=== PATIENT | female | born 1970 | race Caucasian/White ===

== ENCOUNTER 2019-11-25 05:00 | Day surgery (SDC) | payer OTHER ==
[2019-11-24 13:36] LABS: HEMATOCRIT 42.2 % (36.0-48.0); MCH 29.4 pg (26.0-34.0); MCHC 33.2 g/dL (31.0-37.0); MCV 88.7 fL (80.0-100.0); MEAN PLATELET VOLUME 10.5 fL (7.4-10.4); RBC 4.76 10x6/uL (4.00-5.40); RDW 12.5 % (11.5-14.5)
[~2019-11-25] VITALS: Ht 167.6 cm; Wt 72.1 kg
[~2019-11-25 05:00] MED LIST: CLARITIN 10 MG10 MG PO; RANITIDINE HCL150 M1 PO
[2019-11-25] MEDS ORDERED: ZYRTEC10 MG PO (05:45)
[2019-11-25 05:46] VITALS: BP 117/48; Ht 167.6 cm; Wt 72.1 kg
[2019-11-25 05:55] LABS: HCG URINE NEGATIVE (NEGATIVE)
[2019-11-25] MEDS ORDERED: TORADOL10 MG PO (08:03)
[2019-11-25] MEDS ORDERED: DILAUDID2 MG PO (08:04)
[2019-11-25] MEDS ORDERED: ZOFRAN ODT4 MG/UDTAB PO (08:04)
--- NOTE | 2019-11-25 13:27 | OP ---
PATIENT NAME: YINKA BACON MEDICAL RECORD: [id number] :68 LOCATION:[facility] ADMISSION DATE: SURGEON: LETY SINGH DO DATE OF OPERATION: 11/25/2019 PROCEDURE PERFORMED: Right shoulder arthroscopy with distal clavicle excision, subacromial decompression, labral debridement, biceps tenodesis. PREOPERATIVE DIAGNOSES: Right shoulder pain with partial rotator cuff tear on MRI. POSTOPERATIVE DIAGNOSES: Right shoulder acromioclavicular joint arthritis, subacromial impingement and superior labral anterior-posterior tear. INDICATIONS: Ms. Bacon is a 49-year-old female who has had right shoulder pain for quite some time. She says it hurts more at rest than anything. She did have some pain with movement of her shoulder and I informed her that her MRI showed partial rotator cuff tear. This was done a month ago, but she has been dealing with it for a long time, so we looked at it and there if I needed to repair I would and then clean anything I felt that was in there. She is aware of that and aware of the risks including infection, bleeding, damage to nerves and vessels, need for further surgery, continued pain, blood clots, and even and she signed the consent. SURGEON: Lety Singh DO DESCRIPTION OF PROCEDURE: The patient was taken to the operative suite, after given a block by anesthesia in preoperative area laid in the left lateral decubitus position with the right shoulder up. She was then sedated and LMA was placed. She was given 900 mg of clindamycin preoperatively. The right shoulder was then prepped and draped in sterile fashion and a timeout was performed, everyone was in agreement with the correct side, site, patient and procedure. I then began by insufflating the joint with 60 cc of normal saline with an 18-gauge spinal needle. The incision began. Posterior portal was then established with 11-blade scalpel. The trocar was then entered in the shoulder joint and the scope was entered and the anterior portal was then established with 18-gauge spinal needle and 11-blade scalpel. The shoulder was inspected. She did have a small osteochondral defect in the anterior inferior of the glenoid. Once the glenoid was inspected, the SLAP tear was noticed. After SLAP tear was seen, the long head of the bicep tendon was cut. After the bicep was inspected and there was quite a bit of inflammation in the tendon, the bicep was pulled down into the joint. The subscapularis tendon was inspected and no tear was seen in it as well as the supraspinatus and infraspinatus. There were no loose bodies in the inferior joint. Once that was done, the labrum was debrided with the burner and then I went to the subacromial space. Lateral portal was established with 18-gauge spinal needle and 11-blade scalpel. The subacromial decompression was done at that time and distal acromion was taken off of the spur and then the AC joint was widened by excising partially part of the distal clavicle, opening the joint up to approximately 7 mm. The rotator cuff bursa on top of the rotator cuff was then debrided. There was no tear seen on the bursal side of the rotator cuff either. At this time, the scope water was then turned off and the suction turned on and attention was drawn to the anterior humerus. Incision was made with a #15 blade scalpel and careful dissection was made down to the long head of the biceps tendon, it was pulled out through the incision and then an 8-hole was put into the anterior humerus with a pin and then a OPERATIVE REPORT [id number] YINKA BACON stitch, anchor was put into that hole and impacted in and the bicep tendon was put through the loop and the loop was cinched down to the humerus, securing the bicep into place. Then, this was cut and the biceps tendon was tied down with a loop stitch. The excess tendon and suture were cut at that time. The site was irrigated and closed with 2-0 Vicryl in an inverted interrupted fashion, 4-0 Monocryl ran on the skin and Dermabond glue on the skin. The other portal sites were closed with a 4-0 Monocryl in an inverted interrupted fashion and Dermabond glue was placed on the skin, covered with Telfa and Tegaderm. She was awakened and taken to recovery in stable condition and put a sling on. BLOOD LOSS: Minimal. COMPLICATIONS: None. TRANSINT:[id number] Voice Confirmation ID: [id number] DOCUMENT ID: [id number] LETY SINGH DO at 1329 CC: [id number] DICTATION DATE: 11/25/19 0811 DEHYDROGENATION OPERATOR: 11/25/[address] [facility] [place] 11/25/19 [place] [id number] [place] [id number]
== END 2019-11-25 09:55 | disposition home or self-care (01) ==
LOC: D.OPS 05:00 → D.PAN 07:00 → D.OPS 07:00
PROVIDERS: Anesthesiology; ATTEND Orthopaedic Surgery
DX: M75.111 Incomplete rotator cuff tear or rupture of right shoulder, not specified as traumatic (principal); M13.811 Other specified arthritis, right shoulder; M25.511 Pain in right shoulder

== ENCOUNTER → 2021-05-06 12:45 | Outpatient (CLI) | payer OTHER ==
[2019-11-25 05:46] VITALS: BMI 25.7
[~2021-05-06 12:45] MED LIST changes: +DILAUDID2 MG PO; +TORADOL10 MG PO; +ZOFRAN ODT4 MG/UDTAB PO; +ZYRTEC10 MG PO
== END | disposition home or self-care (01) ==
LOC: D.RAD 12:45
PROVIDERS: ATTEND Family Medicine
DX: J38.3 Other diseases of vocal cords (principal)